=== PATIENT | male | born 1965 | race Caucasian/White ===

== ENCOUNTER 2018-10-02 12:26 | Emergency (ER) | payer MEDICARE ==
[~2018-10-02] VITALS: Ht 175.3 cm; Wt 113.6 kg
[2018-10-02 12:32] VITALS: TEMP 97.3
[2018-10-02] MEDS ORDERED: SEROQUEL 200MG200 MG PO (13:21)
[2018-10-02] MEDS ORDERED: PAXIL40 MG PO (13:22)
[2018-10-02] MEDS ORDERED: ZYPREXA20 MG PO (13:22)
[2018-10-02] MEDS ORDERED: PAXIL 20MG20 MG PO (13:22)
[2018-10-02] MEDS ORDERED: ADVIL200 MG PO (13:23)
[2018-10-02] MEDS ORDERED: XANAX2 MG (13:23)
[2018-10-02 13:41] LABS: COLLECTION METHOD CLEAN CATCH
[2018-10-02 13:51] LABS: MUCOUS Present /lpf; PH 7 (5-8); SQUAMOUS EPITHELIAL None Seen /hpf; URINE APPEARANCE Hazy; URINE BACTERIA Rare /hpf; URINE BILIRUBIN Negative (NEGATIVE); URINE BLOOD Negative (NEGATIVE); URINE COLOR Yellow; URINE GLUCOSE Negative (NEGATIVE); URINE KETONE Negative (NEGATIVE); URINE LEUKOCYTE ESTERASE Negative (NEGATIVE); URINE NITRATE Negative (NEGATIVE); URINE PROTEIN(semi-quant) Negative (NEGATIVE); URINE UROBILINOGEN Negative (NEGATIVE)
[2018-10-02] MEDS ORDERED: LIDODERM 5% PATC1 EA TP (14:19)
[2018-10-02] MEDS ORDERED: FLEXERIL 1010 MG/TAB PO (14:19)
[2018-10-02 14:28] VITALS: BP 152/107; PULSE 66
== END 2018-10-02 14:29 | disposition home or self-care (01) ==
LOC: COL.ER 12:26
PROVIDERS: Physician Assistant
DX: M54.5 Low back pain (principal); F41.9 Anxiety disorder, unspecified; F17.210 Nicotine dependence, cigarettes, uncomplicated; F25.9 Schizoaffective disorder, unspecified
CPT/HCPCS: J1885

== ENCOUNTER 2018-10-31 20:05 | Emergency (ER) | payer MEDICARE ==
[~2018-10-31] VITALS: Ht 165.1 cm; Wt 117.7 kg
[~2018-10-31 20:05] MED LIST: ADVIL200 MG PO; FLEXERIL 1010 MG/TAB PO; LIDODERM 5% PATC1 EA TP; PAXIL 20MG20 MG PO; PAXIL40 MG PO; SEROQUEL 200MG200 MG PO; XANAX2 MG; ZYPREXA20 MG PO
[2018-10-31 20:13] VITALS: TEMP 97.5
[2018-10-31 20:45] LABS: BASO # 0.1 (0.0-0.2); BASO % 1.3 % (0.0-2.0); EOS # 0.4 (0.0-0.7); EOS % 4.2 % (0-4.0); GRAN # 6.3 (1.4-6.5); GRAN % 64.8 % (42.2-75.2); HEMATOCRIT 46.3 % (42.0-52.0); HEMOGLOBIN 16.1 g/dl (13.5-18.0); LYMPH % 21.1 % (20.0-51.0); MEAN CELL VOLUME 91 fl (80.0-100.0); MEAN CORPUSCULAR HEMOGLOBIN 32 pg (27.0-31.0); MEAN CORPUSCULAR HGB CONC 35 g/dl (33.0-37.0); MEAN PLATELET VOLUME 9.1 fl (7.4-10.4); MONO # 0.8 (0.1-0.6); MONO % 7.9 % (1.7-9.3); PLATELET COUNT 259 K/mm3 (130-400); REDCELL DISTRIBUTION WIDTH-CV 13.2 % (11.5-14.5)
[2018-10-31 20:59] LABS: ALANINE AMINOTRANSFERASE 143 U/L (21-72); ALBUMIN 4.9 gm/dL (3.5-5.0); ALCOHOL(ethanol),MEDICAL 154 mg/dL; ALKALINE PHOSPHATASE 64 U/L (50-136); ANION GAP 14 mmol/L (7-16); AST,SGOT 113 U/L (15-37); BILIRUBIN,TOTAL 0.5 mg/dL (0.0-1.0); BLOOD UREA NITROGEN 10 mg/dL (9-20); CALCIUM 9.5 mg/dL (8.4-10.2); CARBON DIOXIDE 28 mmol/L (22-30); CHLORIDE 95 mmol/L (98-107); CREATINE KINASE 243 U/L (55-170); CREATININE, serum 0.86 (0.66-1.25); GLUCOSE 87 mg/dL (74-106); LIPASE 110 U/L (23-300); POTASSIUM 3.7 mmol/L (3.4-5.0); SODIUM 137 mmol/L (137-145); TOTAL PROTEIN 8.1 gm/dL (6.4-8.2)
[2018-10-31 21:12] LABS: TROPONIN-I < 0.012 ng/mL (0.000-0.035)
[2018-10-31 23:00] VITALS: BP 154/78; PULSE 86
== END 2018-10-31 23:00 | disposition home or self-care (01) ==
LOC: COL.ER 20:05
PROVIDERS: Emergency Medicine
DX: R07.81 Pleurodynia (principal); I10 Essential (primary) hypertension; F20.9 Schizophrenia, unspecified; F31.9 Bipolar disorder, unspecified; F17.210 Nicotine dependence, cigarettes, uncomplicated
CPT/HCPCS: J7030

== ENCOUNTER → 2018-11-23 | Outpatient (CLI) | payer MEDICARE | LOC: MHCPAIN 09:24 | DX: G89.29 Other chronic pain (principal); M47.817 Spondylosis without myelopathy or radiculopathy, lumbosacral region; M54.16 Radiculopathy, lumbar region; M53.3 Sacrococcygeal disorders, not elsewhere classified | CPT/HCPCS: G0463 ==